=== PATIENT | female | born 1985 | race Two or more races ===

== ENCOUNTER 2017-03-04 11:22 | Emergency (ER) | payer OTHER ==
[~2017-03-04] VITALS: Ht 170.2 cm; Wt 50.5 kg
[2017-03-04 11:42] VITALS: Ht 170.2 cm; Wt 50.5 kg
[2017-03-04] MEDS ORDERED: morphine 4 MG/ML VIAL IV STA (14:21)
[2017-03-04] MEDS ORDERED: ONDANSETRON 4 MG INJ IV STA (14:21)
[2017-03-04 15:04] LABS: ADD SCAN DIFF NO
[2017-03-04 15:06] LABS: BASOPHILS % 0.5 % (0.0-2.0); EOSINOPHILS # 0.1 10^3/ul (0.0-0.5); EOSINOPHILS % 1.2 % (0.0-7.0); HEMATOCRIT 36.1 % (37.0-47.0); HEMOGLOBIN 12.1 g/dl (12.0-16.0); LYMPHOCYTES # 2.5 10^3/ul (0.8-2.9); MEAN CORPUSCULAR HEMOGLOBIN 28.8 pg (29.0-33.0); MEAN CORPUSCULAR HGB CONC 33.5 g/dl (32.0-37.0); MEAN PLATELET VOLUME 11.3 fl (7.4-10.4); MONOCYTE # 0.5 10^3/ul (0.3-0.9); MONOCYTES % 6.8 % (0.0-11.0); NEUTROPHIL # 4.2 10^3/ul (1.6-7.5); NEUTROPHILS % 57.2 % (39.0-77.0); PLATELET COUNT 272 10^3/UL (140-415); RED CELL DISTRIBUTION WIDTH 12.6 % (11.5-14.5); WHITE BLOOD COUNT 7.3 10^3/ul (4.8-10.8)
[2017-03-04 15:13] LABS: ALBUMIN 4.9 g/dl (3.3-4.9)
[2017-03-04 15:14] LABS: POTASSIUM 3.3 mmol/L (3.5-5.1)
[2017-03-04 15:16] LABS: BILIRUBIN,INDIRECT 1.6 mg/dl (0-1.1); BILIRUBIN,TOTAL 1.6 mg/dl (0.2-1.3); CREATININE 0.56 mg/dl (0.44-1.00)
[2017-03-04 15:17] LABS: ALBUMIN/GLOBULIN RATIO 1.53; CALCIUM 9.5 mg/dl (8.4-10.2); TOTAL PROTEIN 8.1 g/dl (6.1-8.1)
[2017-03-04 15:18] LABS: ADD UMIC YES; URINE BILIRUBIN (Dip) NEGATIVE (NEGATIVE); URINE BLOOD (Dip) TRACE (NEGATIVE); URINE COLOR LT. YELLOW (YELLOW); URINE GLUCOSE (Dip) NEGATIVE (NEGATIVE); URINE KETONES (Dip) 15 (NEGATIVE); URINE LEUKOCYTE ESTERASE (Dip) TRACE (NEGATIVE); URINE NITRITE (Dip) NEGATIVE (NEGATIVE); URINE TOTAL PROTEIN (Dip) NEGATIVE (NEGATIVE); URINE UROBILINOGEN (Dip) 0.2 E.U./dL (0.1-1.0)
--- NOTE | 2017-03-04 15:29 | ERD ---
ER Documentation Chief Complaint Date/Time DATE: 03/04/17 TIME: 15:26 Chief Complaint RIGHT LOWER ABDOMINAL PAIN 7/10 HPI This a 31-year-old female who presents to the emergency department today complaining of right-sided abdominal pain for the past 4 days. She also has some back pain. Patient states that she saw her primary care doctor at [facility] [place] and was referred here to the emergency department for further evaluation and workup. Denies any nausea vomiting, fevers or chills or dysuria. ROS All systems reviewed and are negative except as per history of present illness. Medications Home Meds Active Scripts Docusate Sodium* (Colace*) 100 Mg Capsule, 100 MG PO TID, #30 CAP Prov:LEEANN AVALOS PA-C 03/04/17 Polyethylene Glycol* (Miralax*) 17 Gm Powd.pack, 17 GM PO DAILY, #15 Prov:LEEANN AVALOS PA-C 03/04/17 Acetaminophen* (Tylophen*) 500 Mg Capsule, 1 CAP PO Q6H Y for PAIN AND OR ELEVATED TEMP, #30 CAP Prov:LEEANN AVALOS PA-C 03/04/17 Tramadol HCl (Tramadol HCl) 50 Mg Tablet, 50 MG PO Q4 Y for PAIN, #20 TAB Prov:LEEANN AVALOS PA-C 03/04/17 Allergies Allergies: Coded Allergies: No Known Allergy (Unverified , 09/22/16) PMhx/Soc History of Surgery: Yes (? OVARY ) Hx Alcohol Use: No Hx Substance Use: No Hx Tobacco Use: No Physical Exam Vitals Vital Signs Date Time Temp Pulse Resp B/P Pulse Ox O2 Delivery O2 Flow Rate FiO2 03/04/17 11:42 98.1 77 18 110/72 98 Physical Exam Const: No acute distress Head: Atraumatic Eyes: Normal Conjunctiva ENT: Normal External Ears, Nose and Mouth. Neck: Full range of motion..~ No meningismus. Resp: Clear to auscultation bilaterally Cardio: Regular rate and rhythm, no murmurs Abd: Soft, right lower quadrant tenderness non distended. Normal bowel sounds No left lower quadrant pain Skin: No petechiae or rashes Back: No midline tenderness. Bilateral paraspinal tenderness. Ext: No cyanosis, or edema Neur: Awake and alert Psych: Normal Mood and Affect Result Diagram: 03/04/17 1430 03/04/17 1430 Results 24 hrs Laboratory Tests Test 03/04/17 14:30 White Blood Count 7.310^3/ul Red Blood Count 4.2010^6/ul Hemoglobin 12.1g/dl Hematocrit 36.1% Mean Corpuscular Volume 86.0fl Mean Corpuscular Hemoglobin 28.8pg Mean Corpuscular Hemoglobin Concent 33.5g/dl Red Cell Distribution Width 12.6% Platelet Count 14639^3/UL Mean Platelet Volume 11.3fl Neutrophils % 57.2% Lymphocytes % 34.0% Monocytes % 6.8% Eosinophils % 1.2% Basophils % 0.5% Nucleated Red Blood Cells % 0.0/100WBC Neutrophils # 4.210^3/ul Lymphocytes # 2.510^3/ul Monocytes # 0.510^3/ul Eosinophils # 0.110^3/ul Basophils # 0.010^3/ul Nucleated Red Blood Cells # 0.010^3/ul Urine Color LT. YELLOW Urine Clarity CLEAR Urine pH 5.5 Urine Specific [place] 1.025 Urine Ketones 15 Urine Nitrite NEGATIVE Urine Bilirubin NEGATIVE Urine Urobilinogen 0.2 E.U./dL Urine Leukocyte Esterase TRACE Urine Microscopic RBC 0-2/HPF Urine Microscopic WBC 5-10/HPF Urine Squamous Epithelial Cells MODERATE Urine Bacteria OCCASIONAL Urine Hemoglobin TRACE Urine Glucose NEGATIVE% Urine Total Protein NEGATIVE Sodium Level 141mmol/L Potassium Level 3.3mmol/L Chloride Level 102mmol/L Carbon Dioxide Level 24mmol/L Anion Gap 18 Blood Urea Nitrogen 8mg/dl Creatinine 0.56mg/dl Glucose Level 85mg/dl Calcium Level 9.5mg/dl Total Bilirubin 1.6mg/dl Direct Bilirubin 0.00mg/dl Indirect Bilirubin 1.6mg/dl Aspartate Amino Transf (AST/SGOT) 19IU/L Alanine Aminotransferase (ALT/SGPT) 23IU/L Alkaline Phosphatase 66IU/L Total Protein 8.1g/dl Albumin 4.9g/dl Globulin 3.20g/dl Albumin/Globulin Ratio 1.53 Lipase 83U/L Current Medications Medications (Trade) Dose Ordered Sig/Vianca Route PRN Reason Start Time Stop Time Status Last Admin Dose Admin Morphine Sulfate (morphine) 4 mg ONCE STAT IV 03/04/17 14:21 03/04/17 14:23 DC 03/04/17 14:56 Ondansetron HCl (Zofran Inj) 4 mg ONCE STAT IV 03/04/17 14:21 03/04/17 14:24 DC 03/04/17 14:56 DIAGNOSTIC IMAGING REPORT Patient: ABEBA MCCULLOUGH : 1985 Age: 31 Sex: F MR #: [id number] DOS: 03/04/17 1421 Ordering MD: LEEANN AVALOS PA-C Location: [facility] Room/Bed: PROCEDURE: CT scan of the abdomen and pelvis without IV contrast. CLINICAL INDICATION: Abdominal pain. TECHNIQUE: Thin section axial, coronal and sagittal images were performed through the abdomen and pelvis without contrast. Radiation Dose: CTDI: 5.1 and DLP: 269.2 One or more of the following dose reduction techniques were used: - Automated exposure control. - Adjustment of the mA and/or kV according to patient size. Use of iterative reconstruction technique. COMPARISON: Chest x-ray 12/20/2016 06:18 a.m. FINDINGS: Soft tissues: Normal. Lungs and pleural spaces: Normal. Heart: Normal. The liver, common bile duct and gallbladder: Normal. Gastrointestinal: The stomach small bowel loops, colon and vermiform appendix are normal. There is fecal material in the proximal rectal ampulla and sigmoid colon. There is fecal material in the ascending, transverse and most of the descending colon consistent with constipation. Pancreas: Normal. Kidneys, bladder and adrenal glands : There is a 1 mm nonobstructive nephrolith in the lateral aspect of the upper portion of the lower third of the left kidney. The kidneys, adrenal glands and urinary bladder are otherwise normal. Spleen: Normal. Lymph nodes: Normal. Reproductive system and pelvis : The uterus measures 9.5 cm sagittal by 4.9 cm AP by 6.9 cm transverse. No free pelvic fluid or abnormal adnexal mass is identified. The ovaries are unremarkable. There are phleboliths in the pelvis. Bony elements: Normal. Vasculature: Normal. IMPRESSION: 1. Constipation. Normal vermiform appendix. 2. 2 mm nonobstructive nephrolith lateral upper portion lower third left kidney. 3. Otherwise, negative CT scan of the abdomen pelvis performed without contrast. RPTAT:AAJJ Physician Jaspal Date Time Electronically viewed and signed by Alexandre Pride Physician on 03/04/2017 16:58 JM/ CC: LEEANN AVALOS PA-C Procedures/MDM This a 31-year-old female who presents to the emergency department today complaining of right-sided abdominal pain for the past 4 days. Patient was sent here by her clinic to rule out acute appendicitis. I did obtain laboratory work as well as imaging. Laboratory work shows no elevated white blood cell count. She is not anemic. Platelets are within normal limits. Potassium is mildly decreased otherwise electrolytes are within normal limits. Liver function is within normal limits. Lipase is within normal limits. UA shows trace leukocyte esterase. Negative nitrates. Urine test is negative. CT abdomen pelvis noncontrast she has constipation. She has a normal variform appendix. There is a 2 mm nonobstructive nephrolith in the lateral upper portion of the lower third of the left kidney. There is no free pelvic fluid or abnormal adnexal mass. Ovaries are unremarkable. Patient has abdominal pain of uncertain etiology however may be related to constipation. Low suspicion for acute surgical abdomen. Low suspicion for pyelonephritis. Patient is afebrile and otherwise well-appearing. She does have evidence of one small kidney stone. Low suspicion for tubo-ovarian abscess, ovarian torsion, ectopic . Patient did have trace leukocyte Estrace on her UA however she denies any dysuria and I have more suspicion that it is a dirty catch. He did not feel that she requires antibiotics for urinary tract infection at this time. Patient was given a prescription for tramadol for home as well as Tylenol, MiraLAX and Colace At this time the patient is stable for discharge and outpatient management. Patient should follow up with their PCP in the next 1-2 days. They may return to the emergency department sooner for any persistent or worsening of symptoms. Patient understood and agreed with the plan. Departure Diagnosis: Primary Impression: Abdominal pain Abdominal location: right lower quadrant Qualified Code: R10.31 - Right lower quadrant abdominal pain Condition: Fair LEEANN AVALOS-C Mar 04, 2017 15:28
[2017-03-04 15:40] LABS: SQUAMOUS EPITHELIAL CELL,UR MODERATE; URINE RBCS 0-2 /HPF (0)
[2017-03-04 15:41] LABS: BACTERIA,URINE OCCASIONAL
--- NOTE | 2017-03-04 16:58 | RADRPT ---
PROCEDURE: CT scan of the abdomen and pelvis without IV contrast. CLINICAL INDICATION: Abdominal pain. TECHNIQUE: Thin section axial, coronal and sagittal images were performed through the abdomen and pelvis without contrast. Radiation Dose: CTDI: 5.1 and DLP: 269.2 One or more of the following dose reduction techniques were used: - Automated exposure control. - Adjustment of the mA and/or kV according to patient size. Use of iterative reconstruction technique. COMPARISON: Chest x-ray 12/20/2016 06:18 a.m. FINDINGS: Soft tissues: Normal. Lungs and pleural spaces: Normal. Heart: Normal. The liver, common bile duct and gallbladder: Normal. Gastrointestinal: The stomach small bowel loops, colon and vermiform appendix are normal. There is fecal material in the proximal rectal ampulla and sigmoid colon. There is fecal material in the asc ending, transverse and most of the descending colon consistent with constipation. Pancreas: Normal. Kidneys, bladder and adrenal glands : There is a 1 mm nonobstructive nephrolith in the lateral aspec t of the upper portion of the lower third of the left kidney. The kidneys, adrenal glands and urina ry bladder are otherwise normal. Spleen: Normal. Lymph nodes: Normal. Reproductive system and pelvis : The uterus measures 9.5 cm sagittal by 4.9 cm AP by 6.9 cm transver se. No free pelvic fluid or abnormal adnexal mass is identified. The ovaries are unremarkable. The re are phleboliths in the pelvis. Bony elements: Normal. Vasculature: Normal. IMPRESSION: 1. Constipation. Normal vermiform appendix. 2. 2 mm nonobstructive nephrolith lateral upper portion lower third left kidney. 3. Otherwise, negative CT scan of the abdomen pelvis performed without contrast. RPTAT:AAJJ Physician Jaspal Date Time Electronically viewed and signed by Physician Jaspal on 03/04/2017 16:58 /
[2017-03-04] MEDS ORDERED: TRAM50TA2 PO (17:23)
[2017-03-04] MEDS ORDERED: ACET500C5 PO (17:23)
[2017-03-04] MEDS ORDERED: POLY17PO6 PO (17:32)
[2017-03-04] MEDS ORDERED: DOCU-144 PO (17:32)
[2017-03-04 17:42] VITALS: BP 118/72; PULSE 70; RESP 17; TEMP 98.6
== END 2017-03-04 17:34 | disposition home or self-care (01) ==
LOC: FTE 11:22
DX: R10.31 Right lower quadrant pain (principal)
CPT/HCPCS: 74176; 80053; 81001; 83690; 85025; J2270; J2405; 36415; 81003; 96374; 96375

== ENCOUNTER 2019-01-13 11:37 | Day surgery (SDC) | payer OTHER ==
[~2019-01-13] VITALS: Ht 157.5 cm; Wt 59.4 kg
[~2019-01-13 11:37] MED LIST: ACET500C5 PO; DOCU-144 PO; POLY17PO6 PO; TRAM50TA2 PO
[2019-01-13 12:31] VITALS: Ht 157.5 cm; Wt 59.4 kg
[2019-01-13 13:26] VITALS: BP 121/81; PULSE 86; RESP 18
--- NOTE | 2019-01-13 13:53 | PREAC ---
Date/Time of Note Date/Time of Note DATE: 01/13/19 TIME: 13:50 Anesthesia Eval and Record Evaluation Time Pre-Procedure Interview DATE: 01/13/19 TIME: 13:50 Age 33 Sex female NPO: 8 hrs Preoperative diagnosis Dysphagia, vomiting Planned procedure EGD Past Medical History Past Medical History: None Surgery & Anesthesia Issues No known issue Meds Anticoagulation: No Beta Erwin within 24 hr: No Reason Beta Erwin not given: Pt. not on B-Erwin Discontinued Scripts Docusate Sodium* (Colace*) 100 Mg Capsule, 100 MG PO TID, #30 CAP Prov:LEEANN AVALOS PA-C 03/04/17 Polyethylene Glycol* (Miralax*) 17 Gm Powd.pack, 17 GM PO DAILY, #15 Prov:LEEANN AVALOS PA-C 03/04/17 Acetaminophen* (Tylophen*) 500 Mg Capsule, 1 CAP PO Q6H PRN for PAIN AND OR ELEV ATED TEMP, #30 CAP Prov:LEEANN AVALOS PA-C 03/04/17 Tramadol HCl (Tramadol HCl) 50 Mg Tablet, 50 MG PO Q4 PRN for PAIN, #20 TAB Prov:LEEANN AVALOS PA-C 03/04/17 Meds reviewed: Yes Allergies Coded Allergies: No Known Allergy (Unverified , 01/13/19) Allergies Reviewed: Yes Labs/Studies Labs Reviewed: Reviewed by anesthesiologist test: Negative Studies: ECG (n/a), CXR (n/a) Pre-procedure Exam Last vitals Vital Signs Date Temp Pulse Resp B/P (MAP) Pulse Ox O2 O2 Flow FiO2 Time Delivery Rate 01/13/19 97.7 86 18 121/81 97 Room Air 13:26 (94) Airway: Adequate mouth opening, Adequate thyromental dist Mallampati: Mallampati II Teeth: Normal Lung: Normal Heart: Normal ASA Physical Status ASA physical status: 2 Emergency: None Planned Anesthetic General/MAC: MAC Planned Pain Management Parenteral pain med Pre-operative Attestations Prior to commencing anesthesia and surgery, the patient was re-evaluated, there was verification of: *The patient's identity *The results of appropriate recent lab work and preoperative vital signs *The above evaluation not changing prior to induction *Anesthetic plan, risk benefits, alternative and complications discussed with patient/family; questions answered; patient/family understands, accepts and wishes to proceed. MORGAN LEGER MD Jan 13, 2019 13:53
[2019-01-13] MEDS ORDERED: PROPOFOL 20 ML ONE (14:01)
--- NOTE | 2019-01-13 14:02 | PAC ---
Date/Time of Note Date/Time of Note DATE: 01/13/19 TIME: 14:02 Post-Anesthesia Notes Post-Anesthesia Note Last documented vital signs Vital Signs Date Temp Pulse Resp B/P (MAP) Pulse Ox O2 O2 Flow FiO2 Time Delivery Rate 01/13/19 97.7 86 18 121/81 97 Room Air 14:06 (94) Activity: WNL Respiratory function: WNL Cardiovascular function: WNL Mental status: Baseline Pain reasonably controlled: Yes Hydration appropriate: Yes Nausea/Vomiting absent: Yes MORGAN LEGER MD Jan 13, 2019 14:02
[2019-01-13 14:30] VITALS: BP 133/82; PULSE 90; RESP 18
== END 2019-01-13 15:09 | disposition home or self-care (01) ==
LOC: GIL 11:37
PROVIDERS: ATTEND Internal Medicine Gastroenterology
DX: K21.0 Gastro-esophageal reflux disease with esophagitis (principal); K29.00 Acute gastritis without bleeding
CPT/HCPCS: 43239; 88305; 88312; 88313; Z7610